=== PATIENT | male | born 2000 | race Hispanic/Latino ===

== ENCOUNTER 2023-05-16 12:44 | Emergency (ER) | payer BC, SELFPAY ==
[2023-05-16 13:13] VITALS: BP 120/84
--- NOTE | 2023-05-16 14:19 | ED.GENMED ---
History of Present Illness
General
Chief Complaint: Musculo-Skeletal Complaint
Time Seen by Provider: 05/16/23 13:34
Travel History
Have you had any contact with someone who has COVID-19?: No
Do you have any symptoms of coronavirus? Fever > 100 degrees, chills, cough, shortness of breath, sore throat, loss of taste or smell, muscle aches, or headache?: No
History of Present Illness
History of Present Illness:
23-year-old male presents the emergency department for evaluation of left knee pain after soccer injury yesterday. States he planted and twisted his body but the foot immediately ground, felt intense pain. He is able to walk with pain. There is
moderate swelling of the knee
Past History
Past History
ED Past Medical History: None
ED Past Surgical History: None
Social History
Tobacco: Non-smoker
Alcohol: Occasional
Drug: None
Personal: Single
Living: with family
Employment: Employed
Family History
Family History: Other (Noncontributory)
Review of Systems
Review of Systems
Allergies reviewed?: Yes
All Other Systems: ROS reviewed and negative except as documented in HPI and ROS
Phy Exam
Physical Exam
Physical Exam:
GEN: Well appearing, NAD, WDWN
HEENT: Oral mucosa moist, no scleral icterus
Cardiac: Regular rate
Lung: No respiratory distress, no tachypnea
MSK: Large left knee effusion, flexion limited beyond 45 degrees due to pain, there is anterior laxity concerning for ACL rupture
Skin: Good color, no pallor or jaundice, no rashes
Neuro: AO x3, moves all extremities freely
Psych: Calm, cooperative
Course
Orders/Labs/Results
Orders:
Orders
05/16/23 13:14
Knee, Left 4 or More Views [CR Knee - Left 4 Or More View*] Urgent
Comment:
Reason For Exam: pain, trauma
05/16/23 14:24
Knee Immobilizer Left-Treatmen ONCE
Vital Signs
Initial and Last Documented VS:
Initial Vital Signs
Temp Pulse Resp BP Pulse Ox
99.2 F 74 18 120/84 98
05/16/23 13:13 05/16/23 13:13 05/16/23 13:13 05/16/23 13:13 05/16/23 13:13
Last Documented Vital Signs
Temp Pulse Resp BP Pulse Ox
99.2 F 76 16 120/84 97
05/16/23 13:13 05/16/23 14:43 05/16/23 14:43 05/16/23 14:43 05/16/23 14:43
MDM/Problems Addressed
MDM/Problems Addressed:
Exam concerning for anterior cruciate rupture. Placed in knee immobilizer, weightbearing as tolerated, outpatient orthopedic follow-up advised. X-rays independently interpreted by me are negative for acute osseous abnormality
*Critical Care Note
Total Time (30-74mins, 75-104mins- exclusive of procedures): Not Applicable
ED Attending Note
-
Portions of this chart may have been created with voice recognition software.� Occasional wrong word or��sound alike� substitutions may have occurred due to the inherent limitations of voice recognition software.
Discharge Plan
Departure
Patient Disposition: Home (Routine Discharge)
Date of Disposition: 05/16/23
Time of Disposition: 14:19
Patient with high blood pressure during this ER visit?: No
Discharge Problem:
Rupture of ligament of left knee joint
Instructions: Anterior Cruciate Ligament Tear ED
Prescriptions:
No Action
cyclobenzaprine 10 MG tablet
10 mg PO TIDPRN PRN (Reason: back pain/muscle spasm) Qty: 30 0RF
ibuprofen 800 MG tablet
800 mg PO QIDPRN PRN (Reason: pain, fever. Take with food.) Qty: 30 0RF
Referrals:
Denilson Haddad MD [Active] - Call in 1-3 days for appt
Activity Restrictions/Additional Instructions:
Take 600 mg ibuprofen and 1000 mg acetaminophen every 6-8 hours for pain. Ice the knee at least 3 times daily. Follow-up with orthopedics. You may walk while using the knee immobilizer if tolerated
Interventions
Interventions:
*Risk Screen - Suicide Last Done: 05/16/23 14:31
*General Assessment Last Done: 05/16/23 14:31
*Neglect/Abuse Screening Last Done: 05/16/23 14:31
ED- Fall Risk Assessment Last Done: 05/16/23 14:31
*ED COVID-19 Vaccine History Last Done: 05/16/23 14:31
*Nursing Disposition Last Done: 05/16/23 14:43
ED-Musculoskeletal Assessment Last Done: 05/16/23 14:31
Discharge Date and Time
Discharge Date/Time: 05/16/23 14:44
Print Language: MONGOLIAN
[2023-05-16 14:31] VITALS: BP 120/87; BMI 32.3
--- NOTE | 2023-05-16 14:42 | EDRN ---
Reviewed discharge instructions with patient. Verbalized understanding. Patient able to ambulate with immobilizer in place.
[2023-05-16 14:43] VITALS: BP 120/84
== END 2023-05-16 14:44 | disposition home or self-care (01) ==
LOC: EMR 12:44
PROVIDERS: EMERGENCY PHYSICIAN Emergency Medicine
DX: S83.92XA Sprain of unspecified site of left knee, initial encounter (principal); X58.XXXA Exposure to other specified factors, initial encounter
CPT/HCPCS: 99283; 29505; 73564